=== PATIENT | female | born 1975 | race Caucasian/White ===

== ENCOUNTER 2023-11-17 09:21 | Outpatient (CLI) | payer BC ==
[2023-11-17 14:49] LABS: BASOPHILS % (AUTO) 0.5 %; EOSINOPHILS # (AUTO) 0.1 10^3/uL (0.0-0.7); EOSINOPHILS % (AUTO) 1.2 %; HCT - HEMATOCRIT 41.3 % (37.0-47.0); HGB - HEMOGLOBIN 13.2 g/dL (12.0-16.0); LYMPHOCYTES # (AUTO) 2.2 10^3/uL (1.5-3.5); LYMPHOCYTES % (AUTO) 28.7 %; MEAN CORPUSCULAR HEMOGLOBIN 27.7 pg (27.0-31.0); MEAN CORPUSCULAR VOLUME 86.6 fL (81.0-99.0); MEAN PLATELET VOLUME 12.2 fL (7.9-10.8); MONOCYTES # (AUTO) 0.5 10^3/uL (0.0-1.0); MONOCYTES % (AUTO) 6.3 %; NEUTROPHILS # (AUTO) 4.9 10^3/uL (1.5-6.6); NEUTROPHILS % (AUTO) 62.9 %; PLT - PLATELET COUNT 245 10^3/uL (130-450); RED BLOOD COUNT 4.77 10^6/uL (4.20-5.40); RED CELL DISTRIBUTION WIDTH 13.9 % (12.0-15.0); WHITE BLOOD COUNT 7.7 x10^3/uL (4.8-10.8)
[2023-11-17 15:32] LABS: THYROID STIMULATING HORMONE 2.02 uIU/mL (0.34-5.60)
[2023-11-17 15:56] LABS: ALBUMIN 3.9 g/dL (3.2-5.5); ALBUMIN/GLOBULIN RATIO 1.3 (1.0-2.2); ALKALINE PHOSPHATASE 73 IU/L (42-121); ALT ALANINE AMINOTRANSFERASE 18 IU/L (10-60); AST ASPARTATE AMINOTRANSFERASE 16 IU/L (10-42); BILIRUBIN,DIRECT 0.14 mg/dL (0.03-0.18); BILIRUBIN,TOTAL 0.5 mg/dL (0.2-1.0); BUN - BLOOD UREA NITROGEN 9 mg/dL (6-20); CALCIUM 9.1 mg/dL (8.5-10.3); CARBON DIOXIDE - CO2 27 mmol/L (21-32); CHLORIDE 102 mmol/L (101-111); CHOL/HDL RATIO 4.4 (<4.4); CHOLESTEROL 135 mg/dL; CREATININE 0.6 mg/dL (0.6-1.3); GFR - MDRD 108 (>89); GLUCOSE 218 mg/dL (74-104); HDL CHOLESTEROL 31 mg/dL; LDL CHOLESTEROL,CALCULATED 77 mg/dL; LDL/HDL RATIO 2.5 (<4.4); POTASSIUM 4.2 mmol/L (3.5-4.5); SODIUM 134 mmol/L (135-145); TOTAL PROTEIN 6.9 g/dL (6.4-8.9); TRIGLYCERIDES 133 mg/dL (48-352); VLDL CHOLESTEROL 27 mg/dL
[2023-11-17 20:31] LABS: ESTIMATED AVERAGE GLUCOSE 186 mg/dL (70-100); HEMOGLOBIN A1c% 8.1 % (4.27-6.07)
== END 2023-11-17 09:22 | disposition home or self-care (01) ==
LOC: LAB.S 09:21
PROVIDERS: ATTEND Physician Assistant Medical
DX: E11.9 Type 2 diabetes mellitus without complications (principal); K75.81 Nonalcoholic steatohepatitis (NASH); Z13.9 Encounter for screening, unspecified
CPT/HCPCS: 36415; 80053; 80061; 82248; 83036; 83721; 84443; 85025

== ENCOUNTER 2023-11-22 05:17 | Emergency (ER) | payer BC ==
--- NOTE | 2023-11-22 05:58 | ED Physician Documentation ---
PD HPI UPPER EXT INJURY - Stated complaint Stated Complaint: GLF/L SHOULDER PX - Chief complaint Chief Complaint: Trauma Ext - History obtained from History obtained from: Patient - Additonal information Additional information: HPI from patient. At approximately 430 this morning, patient was walking her dog when she tripped and fell onto her left shoulder. She experienced immediate and severe left shoulder pain which is distinctly worse with any attempt to move her left arm at the shoulder. Patient is right hand dominant. She denies any other injuries including head injury, neck injury (also denies any headache or neck pain). Review of Systems Musculoskeletal: reports: Joint pain. denies: Neck pain, Back pain, Extremity pain Neurologic: denies: Generalized weakness, Focal weakness, Numbness, Headache, Head injury, LOC PD PAST MEDICAL HISTORY - Past Medical History Past Medical History: Yes Cardiovascular: High cholesterol Endocrine/Autoimmune: Type 1 diabetes Psych: Anxiety, Panic attacks Other Past Medical History: Nonalcoholic liver disease; RLS - Past Surgical History Past Surgical History: Yes Ortho: Carpal Tunnel surgery, Other /[employer]: section, Hysterectomy, Breast reduction HEENT: Tonsil/Adenoidectomy, Other - Present Medications Home Medications: Ambulatory Orders Medication Instructions Recorded Confirmed Atorvastatin [Lipitor] 20 mg PO QPM 11/22/23 11/22/23 Cyclobenzaprine [Flexeril] 10 mg PO TID PRN #20 tablet 11/22/23 HYDROcod/ACETAM 5/325 [[place] 5/325] 1 - 2 tablet PO Q6H PRN #14 tablet 11/22/23 Pramipexole [Mirapex] 3 tab PO BID 11/22/23 11/22/23 Sertraline HCl 2 tab PO DAILY 11/22/23 11/22/23 - Allergies Allergies/Adverse Reactions: Allergies Allergy/AdvReac Type Severity Reaction Status Date / Time codeine AdvReac Emesis Verified 11/22/23 05:37 - Social History Does the pt smoke?: Yes Smoking Status: Current every day smoker Does the pt drink ETOH?: No Does the pt have substance abuse?: No - Immunizations Immunizations are current?: Yes - POLST Patient has POLST: No PD ED PE NORMAL - Vitals Vital signs reviewed: Yes - General General: Alert and oriented X 3, Other (morbidly obese, painful distress at rest but markedly worse with any movement involving left shoulder; she is holding the left arm in adduction) - HEENT HEENT: Atraumatic, PERRL - Neck Neck: No bony TTP - Cardiac Cardiac: RRR, No murmur - Respiratory Respiratory: No respiratory distress, Clear bilaterally - Abdomen Abdomen: Soft, Non tender - Derm Derm: Normal color - Neuro Neuro: Alert and oriented X 3, No sensory deficit (LTS intact left shoulder (lateral deltoid aspect, left forearm, hand). strong left radial pulse) PD ED PE EXPANDED - Extremities Extremities: Tenderness, Limited ROM, Left shoulder (TTP, limited ROM left shoulder; unable to assess deformity due to body habitus) Results - Vitals Vitals: Vital Signs - 24 hr 11/22/23 11/22/23 11/22/23 05:22 06:00 06:50 Temperature 36.1 C L Heart Rate 95 87 73 Respiratory 18 22 16 Rate Blood Pressure 121/59 L 126/88 H 108/65 O2 Saturation 98 99 99 11/22/23 11/22/23 11/22/23 06:51 06:55 07:00 Temperature 36.7 C Heart Rate 73 78 71 Respiratory 16 17 15 Rate Blood Pressure 108/65 129/65 122/93 H O2 Saturation 99 98 98 11/22/23 11/22/23 11/22/23 07:05 07:10 07:15 Temperature Heart Rate 72 74 85 Respiratory 15 19 18 Rate Blood Pressure 120/71 114/57 L 121/64 O2 Saturation 98 98 97 11/22/23 11/22/23 11/22/23 07:20 07:50 08:20 Temperature Heart Rate 75 77 78 Respiratory 19 16 16 Rate Blood Pressure 90/58 L 111/57 L 116/58 L O2 Saturation 98 100 100 Oxygen O2 Source Room air - Rads (name of study) left shoulder xrays Relevant Findings:: Prelim report reviewed, See rad report post-reduction left shoulder xrays Relevant Findings:: Prelim report reviewed, See rad report Procedures - Reduction Body part reduced: Left, Shoulder Fracture or dislocation: Dislocation Anesthesia: Fentanyl Shoulder reduction technique: [place] / ext rotation, Other (external rotation followed by adddition of [place] technique) Reduction aftercare: NV intact, Xray confirms reduction, Sling, Patient tolerated well - Procedural sedation Sedation prep: Informed consent, Time out completed, Last meal (04:00 (peanut butter toast, milk)), PE performed, ASA 2 - mild disease, IV O2 monitor, ET CO2 monitor, RT present Sedation Medications: propofol (30mg then 20mg then 20mg IVP for total of 70mg propofol) Mallampati classification: I Patient status during sedation: Drowsy, Responds to verbal, Vitals remained stable, Maintained airway, Recovered uneventfully Sedation recovery: Recovered uneventfully, Back to baseline Time in sedation (Minutes): 25 PD Medical Decision Making - ED course Complexity details: reviewed results, re-evaluated patient, considered differential, d/w patient ED course: Left glenohumeral dislocation is reduced as noted in procedure note, above. Post-reduction x-rays confirm successful reduction. Of note, the pre-reduction x-rays were interpreted by the radiologist as at including possible glenoid marginal avulsions; These are not well-visualized on the post-reduction films and thus the possibility of glenoid marginal avulsions remains. This can be reevaluated in the outpatient setting at the discretion of either the primary care provider and/or orthopedic follow-up. Patient was observed in the ED until she returned to baseline mental status. She reports feeling much improved after the reduction was achieved. For some residual pain, she is given 1 tablet of Vicodin orally with 4 mg Zofran as prophylaxis against nausea. I submitted prescriptions electronically for both Zofran and Vicodin to patient's pharmacy of choice. Departure - Departure Disposition: 01 Home, Self Care Clinical Impression: Closed dislocation of glenohumeral joint Qualifiers: Encounter type: initial encounter Laterality: left Qualified Code(s): S43.085A - Other dislocation of left shoulder joint, initial encounter Condition: Good Instructions: ED Dislocation Shoulder Redu Follow-Up: Alphonso Mantilla MD [Provider Admit Priv/Credential] - Prescriptions: Cyclobenzaprine [Flexeril] 10 mg PO TID PRN #20 tablet PRN Reason: Spasms HYDROcod/ACETAM 5/325 [[place] 5/325] 1 - 2 tablet PO Q6H PRN #14 tablet PRN Reason: Pain Comments: Follow-up within 1 week with an orthopedic surgeon. The information for one of the local orthopedic surgeons is provided within these discharge instructions. You can contact that office and see if they can accommodate a follow- up/reevaluation within the week. Otherwise, contact your primary care provider to see if they will provide you a referral for orthopedic surgeon or if they want to reevaluate you themselves. As we discussed, there is a question of whether there might be chip fractures of the glenoid of your shoulder joint (the "socket" of the hugl-lnd-ameqfg joint of the shoulder). This might need further evaluation such as a CT scan or MRI. I have electronically submitted prescriptions for Vicodin (narcotic/opiate pain medication) and cyclobenzaprine (muscle relaxant) to the [facility] pharmacy in [place]. I am prescribing a short course of narcotic pain medication for you. These are potentially dangerous and addictive medications that should be used carefully. These medications may constipate you. Take an mmln-iir-crqodfu stool softener (docusate) twice daily with plenty of water while taking these medications. If you go 24 hours without a bowel movement, take spvx-[id number]-ifiewsz miralax, per package instructions. Do not drink or drive while taking these medications. If you received narcotic or sedating medications while in the emergency department, do not drive for 24 hours. Store this medication in a safe, secure place and out of reach of children. It is a violation of federal law to give or sell this medication to another person or to use in a manner other than prescribed. The ED will not refill narcotic prescriptions, including prescriptions lost or stolen. To dispose of unwanted medications: 1. [facility] [address] in [place] has a medication drop box. They accept prescription medications (in pill form) Wednesday through Wednesday 9:00 a.m. to 5:00 p.m. 2. The [facility] accepts prescription medications (in pill form only) for disposal year round. Call for more information. 3. Contact the [facility] for the next [facility] sponsored prescription drug collection event. , [phone], or [phone]; Forms: PCP List Discharge Date/Time: 11/22/23 08:49
[2023-11-22] MEDS: fentaNYL 100 MCG/2 ML VIAL IVP STA (06:31)
[2023-11-22] MEDS: ONDANSETRON 4 MG/2 ML VIAL IVP STA (06:34)
[2023-11-22] MEDS: PROPOFOL 200 MG/20 ML VIAL IVP STA (06:52)
--- NOTE | 2023-11-22 07:59 | XRAY Report ---
PROCEDURE: Shoulder 2+V LT INDICATIONS: post reduction TECHNIQUE: 2 views of the shoulder were acquired. COMPARISON: Left shoulder radiographs 11/22/2023 FINDINGS: Bones: Interval reduction with apparent nondenominational of normal glenohumeral alignment. Acromioclavicu lar alignment appears normal. Soft tissues: No suspicious soft tissue calcifications. The visualized lungs are within normal limi ts. IMPRESSION: Successful glenohumeral reduction. There is no significant discrepancy when compared with the preliminary overnight report. Reviewed by: William Granados MD on 11/22/2023 7:58 AM PST Approved by: William Granados MD on 11/22/2023 7:58 AM PST Station ID: [id number]
--- NOTE | 2023-11-22 08:02 | XRAY Report ---
PROCEDURE: Shoulder 2+V LT INDICATIONS: GLF, landed on L shoulder, c/o pain TECHNIQUE: 3 views of the shoulder were acquired. COMPARISON: None. FINDINGS: Bones: Anterior dislocation of the glenohumeral joint. The posterior humeral head is seen abutting t he anterior-inferior glenoid. Small calcification is seen adjacent to the glenoid rim. Acromioclavicu lar joint is normally aligned. Soft tissues: The visualized lungs are within normal limits. IMPRESSION: Anterior glenohumeral dislocation. Small calcifications adjacent to the glenoid may represent labral calcifications or small fracture fragments. There is no significant discrepancy when compared with the preliminary overnight report. Reviewed by: William Granados MD on 11/22/2023 8:01 AM PST Approved by: William Granados MD on 11/22/2023 8:01 AM PST Station ID: [id number]
[2023-11-22 08:08] VITALS: O2SAT 100
[2023-11-22] MEDS: ONDANSETRON ODT 4 MG TABLET TL STA (08:21)
[2023-11-22] MEDS: HYDROcod/ACETAM 5/325 MG TABLET PO STA (08:21)
[2023-11-22 08:55] VITALS: BP 116/58
== END 2023-11-22 08:49 | disposition home or self-care (01) ==
LOC: ED 05:17
DX: S43.085A Other dislocation of left shoulder joint, initial encounter (principal); W01.0XXA Fall on same level from slipping, tripping and stumbling without subsequent striking against object, initial encounter; Y93.K1 Activity, walking an animal; F17.200 Nicotine dependence, unspecified, uncomplicated; E66.01 Morbid (severe) obesity due to excess calories; Z68.43 Body mass index [BMI] 50.0-59.9, adult
CPT/HCPCS: 23655; 73030; 96374; 99152; 99153; 99283; 99285; A9270; Q0162

== ENCOUNTER 2023-11-25 08:00 | Outpatient (CLI) | payer BC ==
--- NOTE | 2023-11-25 22:20 | XRAY Report ---
PROCEDURE: Shoulder 3 View LT INDICATIONS: LEFT SHOULDER PAIN TECHNIQUE: 4 views of the shoulder were acquired. COMPARISON: X-ray left shoulder, 11/22/2023. FINDINGS: Bones: No acute fractures or dislocations. No suspicious bony lesions. Small Hill-Sachs deformity o f humeral head. There is a linear osseous density in the glenoid, likely a Bankart lesion. Visualized ribs appear intact. Soft tissues: Calcification over the humeral head suggesting rotator cuff calcific tendinitis. The visualized lungs are within normal limits. IMPRESSION: 1. Small Hill-Sachs deformity in keeping with shoulder dislocation. 2. Linear osseous density adjacent to the glenoid likely a Bankart lesion. 3. Suspect rotator cuff calcific tendinitis. Reviewed by: Hilary Carlin MD on 11/25/2023 10:19 PM PST Approved by: Hilary Carlin MD on 11/25/2023 10:19 PM [facility] Station ID: [id number]
== END 2023-11-25 23:59 | disposition home or self-care (01) ==
LOC: DI.WOS 08:00
PROVIDERS: ATTEND Orthopaedic Surgery
DX: S42.292A Other displaced fracture of upper end of left humerus, initial encounter for closed fracture (principal)

== ENCOUNTER 2023-11-29 02:20 | Emergency (ER) | payer BC ==
--- NOTE | 2023-11-29 02:41 | ED Physician Documentation ---
PD HPI UPPER EXT INJURY - Stated complaint Stated Complaint: L SHOULDER PX - Chief complaint Chief Complaint: Ext Problem - History obtained from History obtained from: Patient, Family - History of Present Illness Location: Left, Shoulder Type of injury: Twist Where injury occurred: Home Timing - onset: Today Timing - duration: Minutes Timing - details: Abrupt onset, Still present Improved by: Rest, Immobilization Worsened by: Moving, Palpating Associated symptoms: No: Weakness, Numbness, Tingling, Swelling, Discolored Contributing factors: No: Anticoagulated, Prior ortho surgery Similar symptoms before: Diagnosis (shoulder dislocation) Recently seen: Emergency Dept - Additonal information Additional information: 48-year-old Radha Mata was asleep in bed and was awoken by thunder and when this occurred her dog jumped up onto her bed and she is uncertain exactly how this happened but she has dislocated her left shoulder again. She dislocated her left shoulder 1 week ago associated with a fall while walking her dog. She had reduction and she has had follow-up with orthopedics. 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, Hysterectomy, Breast reduction HEENT: Tonsil/Adenoidectomy, Other - Present Medications Home Medications: Ambulatory Orders Medication Instructions Recorded Confirmed Atorvastatin [Lipitor] 20 mg PO QPM 11/22/23 11/29/23 Cyclobenzaprine [Flexeril] 10 mg PO TID PRN #20 tablet 11/22/23 11/29/23 HYDROcod/ACETAM 5/325 [[place] 5/325] 1 - 2 tablet PO Q6H PRN #14 tablet 11/22/23 11/29/23 Pramipexole [Mirapex] 3 tab PO BID 11/22/23 11/29/23 Sertraline HCl 2 tab PO DAILY 11/22/23 11/29/23 - Allergies Allergies/Adverse Reactions: Allergies Allergy/AdvReac Type Severity Reaction Status Date / Time codeine AdvReac Emesis Verified 11/29/23 02:34 - Social History Does the pt smoke?: Yes Smoking Status: Current every day smoker Does the pt drink ETOH?: No Does the pt have substance abuse?: No - Immunizations Immunizations are current?: Yes - POLST Patient has POLST: No PD ED PE NORMAL - Vitals Vital signs reviewed: Yes (normal ) - General General: Alert and oriented X 3, No acute distress, Well developed/nourished - HEENT HEENT: Atraumatic, PERRL, EOMI - Cardiac Cardiac: RRR, No murmur - Respiratory Respiratory: No respiratory distress, Clear bilaterally - Abdomen Abdomen: Soft, Non tender - Back Back: No CVA TTP, No spinal TTP - Derm Derm: Normal color, Warm and dry, No rash - Extremities Extremities: Other (There is a defect in the left shoulder consistent with a dislocation and there is tenderness to palpation of the deltoid. Any movement of the arm causes severe pain. 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, No motor deficit, No sensory deficit, Normal speech Eye Opening: Spontaneous Motor: Obeys Commands Verbal: Oriented GCS Score: 15 - Psych Psych: Normal mood, Normal affect Results - Vitals Vitals: Vital Signs - 24 hr 11/29/23 11/29/23 11/29/23 02:25 03:40 03:45 Temperature 36.4 C L Heart Rate 83 79 84 Respiratory 16 17 20 Rate Blood Pressure 125/66 132/85 H 132/85 H O2 Saturation 100 99 98 11/29/23 11/29/23 11/29/23 03:50 03:55 04:00 Temperature Heart Rate 80 74 74 Respiratory 17 16 17 Rate Blood Pressure 111/60 103/66 109/54 L O2 Saturation 98 97 96 11/29/23 11/29/23 11/29/23 04:15 04:45 05:15 Temperature Heart Rate 70 69 84 Respiratory 16 16 21 Rate Blood Pressure 121/77 116/68 121/77 O2 Saturation 97 96 98 Oxygen O2 Source Room air - Rads (name of study) L shoulder Relevant Findings:: Prelim report reviewed (Impression: Left shoulder dislocation.), EMP independent interpretation of test L shoulder post reduction Relevant Findings:: Prelim report reviewed (Impression: 1. Successful reduction of the left shoulder dislocation.), EMP independent interpretation of test Procedures - Reduction Body part reduced: Left, Shoulder Fracture or dislocation: Dislocation Anesthesia: Other (propofol) Shoulder reduction technique: Traction - counter tract Reduction aftercare: NV intact, Xray confirms reduction, Sling, Patient tolerated well - Procedural sedation Sedation prep: Informed consent, Time out completed, Last meal (yesterday), ASA 1 - healthy, IV O2 monitor, ET CO2 monitor, RT present Sedation Medications: propofol (100mg) Mallampati classification: II Patient status during sedation: Responds to tactile, Vitals remained stable, Maintained airway, Recovered uneventfully Sedation recovery: Recovered uneventfully, Back to baseline Time in sedation (Minutes): 4 (recovered quickly from 100mg propofol ) PD Medical Decision Making - ED course Complexity details: reviewed old records, reviewed results, re-evaluated patient, considered differential, d/w patient, d/w family ED course: 48-year-old female presents to the emergency department with a left shoulder dislocation this is reduced with use of propofol. We did not require additional narcotic medication for pain control as the patient claimed that she was comfortable in the position she was in with her arm supported. She tolerated the reduction with 100mg of propofol and recovered quickly from the dose. Departure - Departure Disposition: 01 Home, Self Care Clinical Impression: Closed dislocation of glenohumeral joint Qualifiers: Encounter type: initial encounter Laterality: left Qualified Code(s): S43.085A - Other dislocation of left shoulder joint, initial encounter Condition: Stable Instructions: ED Dislocation Shoulder Redu Follow-Up: Roni Levin MD [Provider Admit Priv/Credential] - Comments: Radha, today it looks like your shoulder dislocation happened rather easily and this may require further intervention from the orthopedic surgeon. The recommendation is to follow-up with Dr. Levin and to use your sling and swath as previously. In addition removal of the sling and swath and pendulum range of motion of the shoulder is important to prevent a frozen shoulder. Forms: PCP List Discharge Date/Time: 11/29/23 05:24
[2023-11-29] MEDS: PROPOFOL 200 MG/20 ML VIAL IVP ONE (03:39)
[2023-11-29 04:24] VITALS: BP 121/77
[2023-11-29 05:28] VITALS: O2SAT 98
--- NOTE | 2023-11-29 08:08 | XRAY Report ---
PROCEDURE: Shoulder 2+V LT INDICATIONS: dislocation TECHNIQUE: 3 views of the shoulder were acquired. COMPARISON: 11/25/2023 FINDINGS: Bones: Anterior shoulder dislocation. Possible small bone fragments again seen adjacent to the gleno id. Soft tissues: No suspicious calcifications. IMPRESSION: Anterior shoulder dislocation. Possible small bone fragment again seen adjacent to the glenoid. Agree with preliminary report. Reviewed by: Ritchie Dietz MD on 11/29/2023 8:07 AM PST Approved by: Ritchie Dietz MD on 11/29/2023 8:07 AM PST Station ID: [id number]
--- NOTE | 2023-11-29 08:09 | XRAY Report ---
PROCEDURE: Shoulder 2+V LT INDICATIONS: post reduction TECHNIQUE: 3 views of the shoulder were acquired. COMPARISON: 11/25/2023, same-day radiograph FINDINGS: Bones: Relocation of the left shoulder. Possible Hill-Sachs and bone fragment adjacent to the glenoi d, as mentioned on radiograph from 11/25/2023. Possible calcific tendinopathy also seen. Soft tissues: No other suspicious calcifications. IMPRESSION: Glenohumeral relocation. Possible Hill-Sachs and Bankart (as mentioned on radiograph from 11/25/2023). Possible calcific tendinopathy. If there is high concern for further derangement, consider MRI evalu ation. No significant discrepancy from the pubic report Reviewed by: Ritchie Dietz MD on 11/29/2023 8:08 AM PST Approved by: Ritchie Dietz MD on 11/29/2023 8:08 AM PST Station ID: [id number]
== END 2023-11-29 05:24 | disposition home or self-care (01) ==
LOC: ED 02:20
DX: S43.085A Other dislocation of left shoulder joint, initial encounter (principal); X58.XXXA Exposure to other specified factors, initial encounter; Y93.84 Activity, sleeping; Y92.003 Bedroom of unspecified non-institutional (private) residence as the place of occurrence of the external cause; F17.200 Nicotine dependence, unspecified, uncomplicated
CPT/HCPCS: 99284; 99285

== ENCOUNTER 2023-12-11 07:35 | Outpatient (CLI) | payer BC ==
--- NOTE | 2023-12-14 08:42 | MRI Report ---
PROCEDURE: Shoulder LT WO INDICATIONS: L HUMERUS DISLOCATION TECHNIQUE: Noncontrast oblique coronal T2 fast spin echo with fat saturation, oblique sagittal T1 spin echo and T2 fast spin echo with fat saturation, axial T1 spin echo and T2 fast spin echo with fat saturation t hrough the shoulder. COMPARISON: X-ray left shoulder 11/29/2023, 11/29/2023. FINDINGS: Image quality: Suboptimal due to body habitus and inability to use dedicated shoulder coil. Rotator cuff: There is mild to moderate supraspinatus, infraspinatus and subscapularis tendinosis. Th ere is intermediate-grade partial-thickness tear of the supraspinatus tendon. No tendon rupture or bhakta praspinous muscle atrophy. There is severe atrophy of the teres minor muscle. Mild deltoid muscle at rophy is also noted. Bones and bursae: There is a Hill-Sachs deformity in the humeral head with associated bone marrow amandeep ma secondary to bone contusions. No acromioclavicular joint degeneration. The acromion demonstrates conventional anatomy, without an os acromiale. Small glenohumeral joint effusion. Capsule and soft tissues: There is a bony Bankart lesion in the anterior inferior glenoid. There is tear of the inferior glenohumeral ligament. The long head of the biceps tendon demonstrates normal lo cation and morphology. The rotator interval appears normal, without fibrosis. The coracohumeral lig ament is normal in thickness. IMPRESSION: 1. Hill-Sachs deformity in the humeral head. 2. Bony Bankart lesion involving the anterior inferior glenoid. 3. Tear of the inferior glenohumeral ligament. 4. Intermediate-grade partial-thickness tear of the supraspinatus tendon. There is supraspinous, infr aspinatus and subscapularis tendinosis. No tendon rupture or muscle atrophy. 5. Severe atrophy of the teres minor muscle and mild atrophy of the deltoid muscle. Differential diag noses are quadrilateral space syndrome and patent external syndrome. 6. Small glenohumeral joint effusion. Reviewed by: Hilary Carlin MD on 12/14/2023 7:41 AM [facility] Approved by: Hilary Carlin MD on 12/14/2023 7:41 AM [facility] Station ID: [id number]
== END 2023-12-11 07:36 | disposition home or self-care (01) ==
LOC: DI 07:35
PROVIDERS: ATTEND Orthopaedic Surgery
DX: M75.112 Incomplete rotator cuff tear or rupture of left shoulder, not specified as traumatic (principal); M21.822 Other specified acquired deformities of left upper arm; M75.82 Other shoulder lesions, left shoulder; M62.512 Muscle wasting and atrophy, not elsewhere classified, left shoulder; M25.411 Effusion, right shoulder; S43.492A Other sprain of left shoulder joint, initial encounter

== ENCOUNTER 2024-04-12 07:09 | Outpatient (CLI) | payer BC ==
[2024-04-12 14:56] LABS: BASOPHILS % (AUTO) 0.6 %; EOSINOPHILS # (AUTO) 0.1 10^3/uL (0.0-0.7); EOSINOPHILS % (AUTO) 1.8 %; HCT - HEMATOCRIT 43.5 % (37.0-47.0); HGB - HEMOGLOBIN 13.8 g/dL (12.0-16.0); LYMPHOCYTES # (AUTO) 2.1 10^3/uL (1.5-3.5); LYMPHOCYTES % (AUTO) 29.4 %; MEAN CORPUSCULAR HEMOGLOBIN 28.4 pg (27.0-31.0); MEAN CORPUSCULAR HGB CONC 31.7 g/dL (32.0-36.0); MEAN CORPUSCULAR VOLUME 89.5 fL (81.0-99.0); MEAN PLATELET VOLUME 12.2 fL (7.9-10.8); MONOCYTES # (AUTO) 0.4 10^3/uL (0.0-1.0); NEUTROPHILS # (AUTO) 4.5 10^3/uL (1.5-6.6); NEUTROPHILS % (AUTO) 62.9 %; PLT - PLATELET COUNT 202 10^3/uL (130-450); RED BLOOD COUNT 4.86 10^6/uL (4.20-5.40); RED CELL DISTRIBUTION WIDTH 13.2 % (12.0-15.0); WHITE BLOOD COUNT 7.2 x10^3/uL (4.8-10.8)
[2024-04-12 15:37] LABS: BILIRUBIN,DIRECT 0.12 mg/dL (0.03-0.18)
[2024-04-12 15:43] LABS: ALBUMIN 3.8 g/dL (3.2-5.5); ALBUMIN/GLOBULIN RATIO 1.5 (1.0-2.2); ALKALINE PHOSPHATASE 64 IU/L (42-121); ALT ALANINE AMINOTRANSFERASE 14 IU/L (10-60); AST ASPARTATE AMINOTRANSFERASE 16 IU/L (10-42); BILIRUBIN,TOTAL 0.4 mg/dL (0.2-1.0); BUN - BLOOD UREA NITROGEN 8 mg/dL (6-20); CALCIUM 9.4 mg/dL (8.5-10.3); CARBON DIOXIDE - CO2 24 mmol/L (21-32); CHLORIDE 107 mmol/L (101-111); CHOL/HDL RATIO 4.5 (<4.4); CHOLESTEROL 138 mg/dL; CREATININE 0.6 mg/dL (0.6-1.3); GFR - MDRD 108 (>89); GLUCOSE 138 mg/dL (74-104); HDL CHOLESTEROL 31 mg/dL; LDL CHOLESTEROL,CALCULATED 72 mg/dL; LDL/HDL RATIO 2.3 (<4.4); SODIUM 138 mmol/L (135-145); TOTAL PROTEIN 6.4 g/dL (6.4-8.9); TRIGLYCERIDES 176 mg/dL; VLDL CHOLESTEROL 35 mg/dL
[2024-04-12 15:48] LABS: CREATININE,URINE 142.5 mg/dL; MICROALBUM/CREATININE RATIO,UR 4.9 ug/mg (<30.0); MICROALBUMIN,URINE 0.7 mg/dL
[2024-04-12 15:58] LABS: THYROID STIMULATING HORMONE 2.29 uIU/mL (0.34-5.60)
[2024-04-12 22:53] LABS: ESTIMATED AVERAGE GLUCOSE 163 mg/dL (70-100); HEMOGLOBIN A1c% 7.3 % (4.27-6.07)
== END 2024-04-12 07:10 | disposition home or self-care (01) ==
LOC: LAB.S 07:09
PROVIDERS: ATTEND Physician Assistant Medical
DX: E11.9 Type 2 diabetes mellitus without complications (principal); K75.81 Nonalcoholic steatohepatitis (NASH); Z13.9 Encounter for screening, unspecified
CPT/HCPCS: 36415; 80053; 80061; 82043; 82248; 82570; 83036; 83721; 84443; 85025

== ENCOUNTER 2024-06-29 15:31 | Outpatient (CLI) | payer BC ==
--- NOTE | 2024-06-29 16:15 | Sleep Patient Instructions ---
Sleep Center Visit Summary - Patient Visit Information Reason for Visit: Initial consultation - Patient Instructions Additional Instructions: You will continue with CPAP therapy with pressure set at 12-20 cmH2O. A supply prescription with transfer of care to new DME supplier will be sent. We encourage you to continue to try to lose weight. Please follow up with the sleep care office in 1 year. - Clinic Information Contact: [facility] [address] [place] [address] [email or web address] T: [phone]
--- NOTE | 2024-06-29 16:19 | SLEEP CARE CONSULTATION ---
Information from patient questionnaire entered by Annemarie Wynn. I have reviewed and concur with the information entered by Annemarie Wynn. This document represents the service I personally performed and the decisions made by me, Ana Lilia Sánchez ARNP. History of Present Illness Service Date and Time: 06/29/2024 1531 Reason for Visit: New patient, Previously diagnosed sleep apnea, sleep apnea on CPAP therapy Chief Complaint: reports: Other (Supplies, continued care) Date of Onset: 2016 Usual bedtime: 11 PM Time it takes to fall asleep: 45 mins - 2 hours Snores at night: No Observed to quit breathing while asleep: Yes Sleeps alone due to snoring: No Number of times waking at night: 1 - 2 Reasons for waking at night: reports: Bathroom Toss, Turn, or Twitch while sleeping: Yes Recalls having dreams: Yes Usually gets out of bed at: 5:30 PM Feels refreshed in the morning: Yes Morning headache: No Sleepy or fatigued during the day: Yes Ever fallen asleep while driving: No Takes day naps: No Dreams during day naps: No Prior sleep studies: Yes Year and Where: 2016 [facility] Type of Sleep Study: Home sleep study Additional HPI information: ERICK WONG was diagnosed to have severe, AHI 41.3, obstructive sleep apnea- hypopnea syndrome as seen in sleep study dated 04/02/2017 through [facility] and comes in today to establish care for CPAP therapy. - Parasomnia Symptoms Ever been unable to move upon waking from sleep: No Walks in sleep: No Talks in sleep: Yes Ever acted out dreams in sleep: No Ever felt weak in the knees when startled or emotional: Yes Bothered by creepy, crawly, restless sensations in legs: Yes Problems with memory or concentration: Yes CPAP Compliance Data - Data Reviewed with Patient Average duration of nightly device use: 7 h 47 mins Compliance rate %: 100 (01/01/24-06/28/24; 180/180 days used) Current pressure setting (cmH2O): 12 - 20 Average residual AHI: 0.3 Central apnea: 0 Obstructive apnea: 0.2 Hypopnea: 0.1 Average large leak: 0.1 L/min Compliance data discussion: She has a ResMed Airsense 11 that she got last July 2023. She has not been getting any supplies. She is using a nasal pillows mask, P10, small cushion. Subjective Patient concerns: denies: aerophagia, mask discomfort, air blowing in eyes, mask leak noise, condensation in mask/hose, nasal congestion, dry mouth, nose, throat, epistaxis Observed to snore while using device: No Current pressure setting perceived as: comfortable On therapy, patient: reports: sleeping better, awakening more refreshed, being more awake and alert during the day, more rested overall. 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 Patient is and lives in [place]. Have you smoked in the past 12 months: Yes Cigarettes per day (20/pack): 20 (25 + years) Alcohol use: No Caffeine use: Yes Caffeine amount and frequency: 1 to 1 can a day Family History Family history of sleep disordered breathing: Yes Family Hx Sleep Apnea: Father: Snoring, Sleep apnea - Untreated, Sibling: Snoring, Sleep apnea - Treated Allergies and Home Medications Known drug allergies: Yes (as listed) Drug allergies reviewed: Yes Home medication list reviewed: Yes (as listed) Allergy and home medication list: Allergies bacitracin [From Triple Antibiotic] Allergy (Verified 06/29/24 16:04) neomycin Allergy (Verified 06/29/24 16:04) polymyxin B [From Triple Antibiotic] Allergy (Verified 06/29/24 16:04) prednisone Allergy (Verified 06/29/24 16:04) Hives venlafaxine Allergy (Verified 06/29/24 16:04) codeine Adverse Reaction (Verified 06/29/24 16:04) Emesis metformin Adverse Reaction (Verified 06/29/24 16:04) Emesis tramadol Adverse Reaction (Verified 06/29/24 16:04) Emesis Home Medications Atorvastatin [Lipitor] 20 mg PO QPM 11/22/23 [History] Pramipexole [Mirapex] 3 tab PO BID 11/22/23 [History] Sertraline HCl 2 tab PO DAILY 11/22/23 [History] Advair 100-50 Diskus See Rx Instructions .ROUTE .COMPLEX 06/29/24 [History] Albuterol See Rx Instructions .ROUTE .COMPLEX 06/29/24 [History] Mounjaro See Rx Instructions .ROUTE .COMPLEX 06/29/24 [History] Review of Systems Weight loss over past 5 years: 40 Cardiovascular: reports: leg or foot swelling. denies: high blood pressure Respiratory: reports: shortness of breath, wheeze, chronic cough Gastrointestinal: reports: vomitting Urinary: reports: urgency Neurological: reports: gait or balance problems Psychiatric: reports: anxiety, depression Ear/Nose/Throat: reports: tonsillectomy, wisdom teeth removed Musculoskeletal: reports: joint pain (/stiffness), joint swelling Immunologic: reports: allergies to food or environment (Seasonal) Physical Exam Vital signs obtained and entered by: Ana Lilia Almaraz NP Blood Pressure: 127/76 Cuff size: long (left arm) Heart Rate: 73 O2 Saturation: 97 Height: 5 ft 6.5 in Weight: 284 lb 3.2 oz Body Mass Index: 45.1 BMI Classification: Morbidly Obese Neck circumference: 20 Heart: regular rate and rhythm Lungs: clear bilaterally Impression and Plan 1. Obstructive Sleep Apnea-Hypopnea Syndrome, severe, with good treatment compl iance and good apnea control. On CPAP therapy, the patient has better sleep quality and is more rested overall. She has not been able to get supplies for a long time, since leaving [place]. I will have my family literacy coordinator inform of DME options. A DWO prescription will then be made. Patient advised to contact this office if further supply problems. She has significant improvement of her sleep apnea and is satisfied with current CPAP therapy. Patient denies problems with oral dryness, nasal congestion, epistaxis, skin irritation or aerophagia. Patient's apnea severity and rationale for treatment to reduce apnea, improve sleep quality and reduce cardiovascular and cerebrovascular events was reviewed. I also reviewed the benefit of consistent device use of CPAP for diabetes, depression/anxiety, RLS. 2. Obesity, unspecified. Currently patients BMI is 45.1. She has been losing weight. Obesity increases the risk of apnea, CPAP pressure requirements and overall health risks especially cardiovascular and diabetes. Thus patient is advised to continue to try to lose weight. * Continue auto CPAP pressure at 12-20 cmH2O * DME Transfer * Update supply prescription. * Notify me if snoring with mask or feeling that the pressure is too much or too little * Continue to try to lose weight * Call this office if any problems using CPAP * Return for follow up in 12 months, or sooner if concerns arise Continue with device pressure at (cmH2O): 12-20 Counseling Topics: Spare mask, Weight loss health impact Prescriptions: Device supplies (with DME Transfer) Follow up with Sleep Care in: 1 year Visit Type: In Office Time Spent with Patient (minutes): 31 Provider Statement: I spent 100% of the Face to Face Visit with the patient with greater than 50% spent counseling the patient and coordination of care.
[2024-06-29 16:35] VITALS: BP 127/76; O2SAT 97
== END 2024-06-29 15:32 | disposition home or self-care (01) ==
LOC: SC 15:31
PROVIDERS: ATTEND Nurse Practitioner Family
DX: G47.33 Obstructive sleep apnea (adult) (pediatric) (principal); E66.01 Morbid (severe) obesity due to excess calories; Z68.42 Body mass index [BMI] 45.0-49.9, adult; F17.210 Nicotine dependence, cigarettes, uncomplicated
CPT/HCPCS: 99203; 99212